=== PATIENT | male | born 1990 | race Caucasian/White ===

== ENCOUNTER 2022-01-16 19:00 | Emergency (ER) | payer OTHER ==
[2022-01-16] MEDS ORDERED: Amoxicillin 500 MG Cap PO ONE (20:06)
[2022-01-16] MEDS ORDERED: Amoxicillin 500 MG Cap ONE (20:06)
== END 2022-01-16 20:25 | disposition home or self-care (01) ==
LOC: KA.ED 19:00
DX: H61.22 Impacted cerumen, left ear (principal); H66.92 Otitis media, unspecified, left ear; Z91.018 Allergy to other foods
CPT/HCPCS: 69210; 99282-25; 99283; A9270-GY